=== PATIENT | male | born 1980 | race Caucasian/White ===

== ENCOUNTER 2024-01-01 11:01 | Emergency (ER) | payer SELFPAY ==
[2024-01-01 11:16] VITALS: TEMP 98.3
--- NOTE | 2024-01-01 11:50 | ERPHSYRPT ---
- History of Present Illness Time Seen by Provider: 01/01/24 11:10 Historian: patient Exam Limitations: no limitations Patient Subjective Stated Complaint: C/O vomiting that started yesterday morning. Patient indicates that he had been drinking for a few days prior to vomiting episodes. Triage Nursing Assessment: Patient ambulated back to ER. He is alert and oriented. No SOB. Skin is moist; diaphoretic. CORTES WNL. Denies abdominal pain. No vomiting noted during assessment. Physician History: 43 years old male presented in the ER with complains of nausea vomiting with abdominal pain and diarrhea since yesterday. Patient reports multiple episodes of nonprojectile, nonbilious vomiting without hematemesis, is unable to hold much down and today started to have loose stool/diarrhea. Patient denies any known sick contact. No fever or chills reported. Feeling weak fatigued tired and dehydrated. Allergies/Adverse Reactions: No Known Drug Allergies Allergy (Verified 01/01/24 11:08) Hx Tetanus, Diphtheria Vaccination/Date Given: Yes Hx Influenza Vaccination/Date Given: No Hx Pneumococcal Vaccination/Date Given: No Immunizations Up to Date: Yes Travel Risk - International Travel Have you traveled outside of the country in past 3 weeks: No - Emerging Infectious Disease Are you exhibiting symptoms associated with any current EIDs: Yes Symptoms: Vomitting - Review of Systems Constitutional: No Symptoms Eyes: No Symptoms Ears, Nose, & Throat: No Symptoms Respiratory: No Symptoms Cardiac: No Symptoms Abdominal/Gastrointestinal: Abdominal Pain, Nausea, Vomiting, Diarrhea Genitourinary Symptoms: No Symptoms Musculoskeletal: Myalgias Skin: No Symptoms Neurological: No Symptoms Psychological: No Symptoms Endocrine: No Symptoms Hematologic/Lymphatic: No Symptoms Immunological/Allergic: No Symptoms - Past Medical History Pertinent Past Medical History: Yes Musculoskeletal History: Fractures - Past Surgical History Past Surgical History: No - Social History Smoking Status: Never smoker Exposure to second hand smoke: No Drug Use: none - Nursing Vital Signs Nursing Vital Signs: Initial Vital Signs Pulse Rate 68 01/01/24 11:06 Respiratory Rate 26 H 01/01/24 11:06 Blood Pressure 137/105 01/01/24 11:06 O2 Sat by Pulse Oximetry 92 L 01/01/24 11:06 Pain Scale Pain Intensity 0 - Physical Exam General Appearance: no apparent distress, alert Eye Exam: PERRL/EOMI Ears, Nose, Throat Exam: normal ENT inspection Neck Exam: normal inspection, non-tender, supple, full range of motion Respiratory Exam: normal breath sounds, lungs clear Cardiovascular Exam: regular rate/rhythm, normal heart sounds Gastrointestinal/Abdomen Exam: soft, normal bowel sounds, tenderness (Minimal g eneralized), No distention, No guarding Back Exam: normal inspection, normal range of motion Extremity Exam: normal inspection, normal range of motion Neurologic Exam: alert, oriented x 3, cooperative, table assembler II-XII nml as tested Skin Exam: normal color SpO2 Interpretation: normal SpO2: 95 O2 Delivery: Room Air Ordered Tests: Active Orders 24 hr Category Date Time Status IV Insertion STAT Care 01/01/24 11:48 Active NPO (ED) STAT Care 01/01/24 11:48 Active ABDOMEN AND PELVIS W/0 CONTRAS [CT] Stat Exams 01/01/24 11:49 Completed CBC W DIFF Stat Lab 01/01/24 11:57 Completed CMP Stat Lab 01/01/24 11:57 Completed LIPASE Stat Lab 01/01/24 11:57 Completed UA W/RFX UR CULTURE Stat Lab 01/01/24 14:07 Received Medication Summary Discontinued Medications Generic Name Dose Route Start Last Admin Trade Name Freq PRN Reason Stop Dose Admin Sodium Chloride 1,000 mls @ 999 mls/hr 01/01/24 11:48 01/01/24 13:03 Sodium Chloride 0.9% 1000 Ml IV 01/01/24 12:48 Infused .Q1H1M STA Infusion Sodium Chloride Confirm 01/01/24 11:55 Sodium Chloride 0.9% 1000 Ml Administered 01/01/24 11:56 Dose 1,000 mls @ ud .ROUTE .STK-MED ONE Morphine Sulfate 4 mg 01/01/24 11:48 01/01/24 11:58 Morphine Sulfate 4 Mg/Ml Injection IV 01/01/24 11:49 4 mg STAT ONE Administration Morphine Sulfate Confirm 01/01/24 11:54 Morphine Sulfate 4 Mg/Ml Injection Administered 01/01/24 11:55 Dose 4 mg .ROUTE .STK-MED ONE Ondansetron HCl 4 mg 01/01/24 11:48 01/01/24 11:56 Ondansetron Hcl 4 Mg/2 Ml Vial IV 01/01/24 11:49 4 mg STAT ONE Administration Ondansetron HCl Confirm 01/01/24 11:54 Ondansetron Hcl 4 Mg/2 Ml Vial Administered 01/01/24 11:55 Dose 4 mg .ROUTE .STK-MED ONE Lab/Rad Data: Laboratory Result Diagrams 01/01/24 11:57 01/01/24 11:57 Laboratory Results 01/01/24 01/01/24 Range/Units 11:57 11:57 WBC 6.0 (4.0-10.5) x10^3/uL RBC 5.35 (4.1-5.6) x10^6/uL Hgb 16.8 (12.5-18.0) g/dL Hct 48.1 (42-50) % MCV 89.9 (78-100) fL MCH 31.4 (26-32) pg MCHC 34.9 (32-36) g/dL RDW 13.2 (11.5-14.0) % Plt Count 215 (150-450) x10^3/uL MPV 9.7 (7.5-11.0) fL Gran % 67.2 H (36.0-66.0) % Immature Gran % (Auto) 0.3 (0.00-0.4) % Nucleat RBC Rel Count 0.0 (0.00-0.1) % Eos # (Auto) 0.13 (0-0.5) x10^3/uL Immature Gran # (Auto) 0.02 (0.00-0.03) x10^3u/L Absolute Lymphs (auto) 1.17 (1.0-4.6) x10^3/uL Absolute Monos (auto) 0.62 (0.0-1.3) x10^3/uL Absolute Nucleated RBC 0.00 (0.00-0.01) x10^3u/L Lymphocytes % 19.6 L (24.0-44.0) % Monocytes % 10.4 (0.0-12.0) % Eosinophils % 2.2 (0.00-5.0) % Basophils % 0.3 (0.0-0.4) % Absolute Granulocytes 4.00 (1.4-6.9) x10^3/uL Basophils # 0.02 (0-0.4) x10^3/uL Sodium 139 (135-145) mmol/L Potassium 3.5 (3.5-5.1) mmol/L Chloride 105 (98-107) mmol/L Carbon Dioxide 22 (22-30) mmol/L Anion Gap 15.4 H (5-15) MEQ/L BUN 10 (9-20) mg/dL Creatinine 0.90 (0.66-1.25) mg/dL Estimated GFR 109.4 ML/MIN Glucose 98 (74-106) mg/dL Calcium 9.4 (8.4-10.2) mg/dL Total Bilirubin 1.00 (0.2-1.3) mg/dL AST 46 (17-59) U/L ALT 27 (0-50) U/L Alkaline Phosphatase 72 (38-126) U/L Serum Total Protein 8.9 H (6.3-8.2) g/dL Albumin 4.8 (3.5-5.0) g/dL Lipase 62 (23-300) U/L - Progress Progress: improved Progress Note: 01/01/24 15:21 43 years old is evaluated in the ER for abdominal pain with nausea vomiting si nce yesterday and having diarrhea since morning. Patient has mild diffuse tenderness. He is given fluids and symptomatic treatment. Acute abdomen workup showed normal white count, fairly unremarkable chemistries. I have obtained CT abdomen pelvis which is negative for any acute intra-abdominal findings. I believe patient's symptoms are more of a viral etiology gastroenteritis, recommended supportive care with Tylenol, Zofran and increase hydration. Discussed signs symptoms of worsening needing return to ER which she seems understanding. Patient did not have any episode of vomiting or diarrhea after treatment here. Counseled pt/family regarding: lab results, diagnosis, need for follow-up, rad results Medical Desision Making - Diagnostic Testing Diagnostic test were ordered, analyzed, and reviewed by me: Yes Radiological Interpretation: Reviewed by me, Teleradiologist Report - Risk of complications The pt has a mod risk of morbidity or mortality based on: Need for prescription drug management - Departure Departure Disposition: Home Clinical Impression: Viral gastroenteritis Condition: Stable Critical Care Time: No Referrals: DOCTOR,NO FAMILY [Primary Care Provider] - Follow up with PCP 1 day Instructions: Viral gastroenteritis in adults Additional Instructions: Drink plenty of fluids to keep yourself well-hydrated. Take Tylenol as needed. Follow-up with your primary care for reevaluation. Return to ER for intractable vomiting/diarrhea/abdominal pain or if develop fever chills etc. Prescriptions: Ondansetron ODT 4 MG [Zofran Odt 4 mg] 1 ea PO QIDPRN PRN #7 tablet PRN Reason: n/v
[2024-01-01] MEDS ORDERED: MORPHINE SULFATE 4 MG INJ ONE (11:54)
[2024-01-01] MEDS ORDERED: Zofran 4 MG/2 ML VIAL ONE (11:54)
[2024-01-01] MEDS ORDERED: Sodium Chloride 0.9% 1000 ML 1,000 ML ONE (11:55)
[2024-01-01] MEDS: Sodium Chloride 0.9% 1000 ML 1,000 ML IV STA (11:56)
[2024-01-01] MEDS: Zofran 4 MG/2 ML VIAL IV ONE (11:56)
[2024-01-01] MEDS: MORPHINE SULFATE 4 MG INJ IV ONE (11:58)
[2024-01-01 12:00] LABS: BASOPHIL % 0.3 % (0.0-0.4); Basophil (Absolute #) 0.02 x10^3/uL (0-0.4); Eosinophil % 2.2 % (0.00-5.0); Eosinophil (Absolute #) 0.13 x10^3/uL (0-0.5); Hematocrit 48.1 % (42-50); Hemoglobin 16.8 g/dL (12.5-18.0); IMMATURE GRAN # 0.02 x10^3u/L (0.00-0.03); IMMATURE GRAN % 0.3 % (0.00-0.4); Lymphocyte (Absolute #) 1.17 x10^3/uL (1.0-4.6); Lymphocytes % 19.6 % (24.0-44.0); Mean Cell Volume 89.9 fL (78-100); Mean Corpuscular Hemoglobin 31.4 pg (26-32); Mean Corpuscular Hgb Concent. 34.9 g/dL (32-36); Mean Platelet Volume 9.7 fL (7.5-11.0); Monocyte (Absolute #) 0.62 x10^3/uL (0.0-1.3); Monocytes % 10.4 % (0.0-12.0); Neutrophil % 67.2 % (36.0-66.0); Platelet Count 215 x10^3/uL (150-450); Red Blood Count 5.35 x10^6/uL (4.1-5.6); Red Cell Distribution Width 13.2 % (11.5-14.0)
[2024-01-01 12:18] LABS: ALBUMIN 4.8 g/dL (3.5-5.0); ANION GAP 15.4 MEQ/L (5-15); Calcium 9.4 mg/dL (8.4-10.2); Creatinine 1 0.9 mg/dL (0.66-1.25); EST GLOMERULAR FILTRATION RATE 109.4 ML/MIN; Potassium 3.5 mmol/L (3.5-5.1); Total Protein 8.9 g/dL (6.3-8.2)
--- NOTE | 2024-01-01 14:37 | XRAY ---
CLINICAL HISTORY: vomiting/diarrhea COMPARISON: None. TECHNIQUE: A CT scan of the abdomen and pelvis was performed without IV contrast. Bowel loops are opacified by prior administration of oral contrast Coronal and sagittal reconstructive images were also obtained. One of the following dose reduction techniques was utilized for this exam: Automated exposure control, adjustment of the mA and/or kV according to patient size, and use of iterative reconstruction. FINDINGS: Abdomen: The liver is of average size. No focal or diffuse parenchymal abnormality. The portal vein, intrahepatic biliary radicals, and the bile ducts are normal. The spleen is average size showing multiple calcifications. The pancreas and adrenal glands are unremarkable. The kidneys are unremarkable. They are normal in size and shape. bilateral renal tiny stones are noted the largest at the right side measures about 1.6 mm and the largest at the left side measures about 2.3 mm no hydronephrosis. The gallbladder is normal. No pericholecystic collection or radio-dense calculi in the gall bladder. The ascending colon, the transverse colon, the descending colon, visualized small bowel loops are unremarkable. No acute appendicitis. There is no evidence of significant enlargement of the mesenteric or retroperitoneal lymph nodes. Cuts taken through the lung showed a small dense calcific nodule measuring about 2 mm at the left lower lung lobe, likely calcified granuloma. Pelvis: The urinary bladder is unremarkable. The rectosigmoid colon is unremarkable. The prostate is unremarkable apart from multiple concretions. No evidence of pelvic lymphadenopathy. The osseous structures in the pelvis, lower rib cage, and lumbar spine show no abnormality. No lytic or sclerotic bone lesions. IMPRESSION: 1. Bilateral renal small non-obstructing stones. 2. No significant acute abdominopelvic abnormalities. Electronically Signed by: Miranda Allen MD. (01/01/2024 14:34:31 EDT)
[2024-01-01 15:15] VITALS: PULSE 70
[2024-01-01 15:23] VITALS: O2SAT 95
[2024-01-01 15:25] LABS: Appearance Clear (Clear); Bacteria None Seen /HPF (None Seen); Bilirubin Negative (Negative); Blood Negative (Negative); Epithelial Cells None Seen /HPF (None Seen); Glucose, Urine Negative (Negative); Hyaline Casts NONE SEEN /LPF (0-2); Ketones Negative (Negative); Leukocyte Esterase Negative (Negative); Nitrite Negative (Negative); Ph 6.5 (4.6-8.0); Protein,Urine Dip Negative (Negative); RBC 0-2 /HPF (0-5); Urobilinogen 0.2 mg/dL (0.2); WBC 0-2 /HPF (0-5)
[2024-01-01 15:27] LABS: ADD URINE CULTURE? NO (NO)
[2024-01-01 15:46] VITALS: BP 164/94; RESP 18
== END 2024-01-01 15:46 | disposition home or self-care (01) ==
LOC: ED 11:01
DX: A08.4 Viral intestinal infection, unspecified (principal); R11.2 Nausea with vomiting, unspecified; R10.9 Unspecified abdominal pain; R19.7 Diarrhea, unspecified; R53.1 Weakness
CPT/HCPCS: 36000; 36415; 74176; 80053; 81001; 83690; 85025; 96374; 96375; 99284; J2270; J2405